=== PATIENT | male | born 1975 | race Caucasian/White ===

== ENCOUNTER 2017-07-15 12:55 | Emergency (ER) | payer OTHER ==
[~2017-07-15] VITALS: Ht 182.9 cm; Wt 146.0 kg
[~2017-07-15 12:55] MED LIST: ONDA4TAB35 PO
[2017-07-15 12:56] VITALS: Ht 182.9 cm; Wt 146.0 kg
[2017-07-15] MEDS ORDERED: IBUPROFEN 800 MG TAB PO ONE (14:30)
--- NOTE | 2017-07-15 15:56 | RADRPT ---
PROCEDURE: XR Left Ankle CLINICAL INDICATION: Medial injury TECHNIQUE: Standard 3 view radiographs were submitted. COMPARISON: None FINDINGS: Osseous structures: There is a comminuted fracture through the medial malleolus with sclerotic [place] suggesting it is not acute. There is a corticated fragmentation at the tip of the lateral mal leolus as well which also does not appear acute. No acute fractures identified. There is calcaneal s purring at the insertion of the Achilles tendon. Joint spaces: The ankle mortise and subtalar joint or anatomically maintained with mild degenerative changes seen about the medial and lateral aspects of the ankle mortise. Soft tissues: There is mild diffuse soft tissue swelling. IMPRESSION: 1. Comminuted old appearing fractures involving the medial malleolus and tip of the lateral malleol us associated mild degenerative change. 2. Mild calcaneal spurring. 3. Mild diffuse soft tissue swelling. Physician Ruperto Date Time Electronically viewed and signed by Physician Ruperto on 07/15/2017 15:56 /
--- NOTE | 2017-07-15 15:59 | RADRPT ---
PROCEDURE: XR Foot 3 Views. CLINICAL INDICATION: Left foot pain. TECHNIQUE: AP, oblique and lateral views of the left foot were obtained. The images were reviewed on a PACS workstation. COMPARISON: None. FINDINGS: Comminuted, nondisplaced fracture through the base of the second metatarsal is identified. Comminute d, minimally displaced fracture through the base of the third metatarsal is seen. Subtle potential c allus formation is identified at these fracture sites. 8 mm corticated calcification is seen along t he medial aspect of the base of the first metatarsal. 12 mm corticated calcification is seen adjacen t to the tip of the medial malleolus. No destructive bony lesions are identified. Mild narrowing a nd degenerative changes seen throughout the tarsal joint compartment. Osteophytosis is seen along th e superior margin of the tarsometatarsal joints and along the superior margin of the navicular [place] form joints on the lateral image. Small Achilles insertion heel spur is seen. Soft tissue swelling is seen over the dorsum of the midfoot. IMPRESSION: Comminuted fractures of the bases of the second and third metatarsals. Subtle potential callus forma tion is identified at these fracture sites suggesting healing. The chronicity of these fractures is indeterminate. Correlation for history of trauma and for pain at this location is recommended. 8 mm corticated calcification adjacent to the medial base of the first metatarsal. Finding could ref lect nonunion of an old fracture versus heterotopic soft tissue calcification. Mild narrowing and degenerative change throughout the tarsal joint compartment. 12 mm corticated calcification adjacent to the tip of the medial malleolus. This could reflect nonun ion of an old fracture versus an accessory ossicle or heterotopic calcification. Achilles insertion heel spur. Soft tissue swelling over the dorsum of the foot. No visualized radiographic evidence of osteomyelitis. If there is clinical suspicion for osteomyelit is, further characterization with MRI or bone scan is recommended. If further characterization is needed CT or MRI could be helpful. If there is high clinical suspicion for additional traumatic injury, further evaluation with CT shou ld be considered. RPTAT: AA .Phoenix Benjamin MD, Date Time Electronically viewed and signed by .Phoenix Benjamin MD, on 07/15/2017 15:59 .P/
[2017-07-15] MEDS ORDERED: IBUP-1542 PO (17:20)
--- NOTE | 2017-07-15 17:34 | ERD ---
ER Documentation Chief Complaint Chief Complaint left ankle pain x 1 hour after fall HPI 42-year-old male patient with a significant past medical history of diabetes, hypertension, hyperlipidemia presents to the ED complaining of a left ankle and foot injury after a mechanical fall. Reports that he was walking and accidentally slipped backwards. Denies any head or neck injuries. Denies any loss of consciousness. Reports that his ankle and foot pain is worsened when he applies pressure while walking. Rates the pain a 10 out of 10. Describes the pain as achy. Denies any fever, chills, nausea, vomiting, diarrhea, saddle anesthesia, urine or bowel incontinence, loss of sensation, loss of range of motion. ROS All systems reviewed and are negative except as per history of present illness. Medications Home Meds Active Scripts Ibuprofen* (Motrin*) 600 Mg Tab, 600 MG PO Q6, #30 TAB Prov:FAY AGUILAR PA-C 07/15/17 Ondansetron Hcl* (Zofran* ODT) 4 mg -ODT Tab.disper, 4 MG PO Q8 Y for NAUSEA AND /OR VOMITING, #5 TAB Prov:FAMLIIA LEONG 07/25/15 Allergies Allergies: Coded Allergies: morphine (Verified Allergy, Unknown, sob, 07/15/17) PMhx/Soc History of Surgery: No Anesthesia Reaction: No Hx Neurological Disorder: Yes (Seizures) Hx Respiratory Disorders: No Hx Cardiac Disorders: No Hx Psychiatric Problems: Yes (dm, ) Hx Alcohol Use: No Hx Substance Use: No Hx Tobacco Use: No Smoking Status: Never smoker Physical Exam Vitals Vital Signs Date Time Temp Pulse Resp B/P Pulse Ox O2 Delivery O2 Flow Rate FiO2 07/15/17 12:56 98.3 91 18 172/92 97 Physical Exam Const: [id number], well-nourished. In no acute distress. Head: Atraumatic, normocephalic Eyes: Normal Conjunctiva without injection ENT: Normal external ear, nose and mouth. Neck: Full range of motion. No meningismus. Resp: Clear to auscultation bilaterally. No wheezing, rhonchi, rales, or crackles. No accessory muscle use. No retractions. Cardio: Regular rate and rhythm, no murmurs Skin: No petechiae or rashes Back: No midline tenderness. No CVA tenderness. Ext: No cyanosis, or edema. Cap refill less than 2 seconds. Distal pulses intact bilaterally. Wrist palpation of the left medial malleolus as well as dorsal aspect of patient's left foot. Slight edema noted. No ecchymosis noted. Neur: Awake and alert. Normal gait and coordination. Muscle strength 5/5. Sensation intact bilaterally. Psych: Normal Mood and Affect Results 24 hrs Current Medications Medications (Trade) Dose Ordered Sig/Kierra Route PRN Reason Start Time Stop Time Status Last Admin Dose Admin Ibuprofen (Motrin) 800 mg ONCE ONCE PO 07/15/17 14:30 07/15/17 14:31 DC 07/15/17 14:19 Procedures/MDM 42-year-old male patient with no significant past medical history presents to the ED complaining of a left ankle and foot injury. Patient is afebrile and nontoxic-appearing. Patient has a blood pressure of 172/92. Patient's blood pressure was elevated (>120/80) but appears stable without evidence of hypertension emergency or urgency. The patient was counseled about the risks of hypertension and urged to pursue outpatient monitoring and therapy within a week with their primary care physician. PROCEDURE: XR Left Ankle CLINICAL INDICATION: Medial injury TECHNIQUE: Standard 3 view radiographs were submitted. COMPARISON: None FINDINGS: Osseous structures: There is a comminuted fracture through the medial malleolus with sclerotic margination suggesting it is not acute. There is a corticated fragmentation at the tip of the lateral malleolus as well which also does not appear acute. No acute fractures identified. There is calcaneal spurring at the insertion of the Achilles tendon. Joint spaces: The ankle mortise and subtalar joint or anatomically maintained with mild degenerative changes seen about the medial and lateral aspects of the ankle mortise. Soft tissues: There is mild diffuse soft tissue swelling. IMPRESSION: 1. Comminuted old appearing fractures involving the medial malleolus and tip of the lateral malleolus associated mild degenerative change. 2. Mild calcaneal spurring. 3. Mild diffuse soft tissue swelling. PROCEDURE: XR Foot 3 Views. CLINICAL INDICATION: Left foot pain. TECHNIQUE: AP, oblique and lateral views of the left foot were obtained. The images were reviewed on a PACS workstation. COMPARISON: None. FINDINGS: Comminuted, nondisplaced fracture through the base of the second metatarsal is identified. Comminuted, minimally displaced fracture through the base of the third metatarsal is seen. Subtle potential callus formation is identified at these fracture sites. 8 mm corticated calcification is seen along the medial aspect of the base of the first metatarsal. 12 mm corticated calcification is seen adjacent to the tip of the medial malleolus. No destructive bony lesions are identified. Mild narrowing and degenerative changes seen throughout the tarsal joint compartment. Osteophytosis is seen along the superior margin of the tarsometatarsal joints and along the superior margin of the navicular cuneiform joints on the lateral image. Small Achilles insertion heel spur is seen. Soft tissue swelling is seen over the dorsum of the midfoot. IMPRESSION: Comminuted fractures of the bases of the second and third metatarsals. Subtle potential callus formation is identified at these fracture sites suggesting healing. The chronicity of these fractures is indeterminate. Correlation for history of trauma and for pain at this location is recommended. 8 mm corticated calcification adjacent to the medial base of the first metatarsal. Finding could reflect nonunion of an old fracture versus heterotopic soft tissue calcification. Mild narrowing and degenerative change throughout the tarsal joint compartment. 12 mm corticated calcification adjacent to the tip of the medial malleolus. This could reflect nonunion of an old fracture versus an accessory ossicle or heterotopic calcification. Achilles insertion heel spur. Soft tissue swelling over the dorsum of the foot. No visualized radiographic evidence of osteomyelitis. If there is clinical suspicion for osteomyelitis, further characterization with MRI or bone scan is recommended. If further characterization is needed CT or MRI could be helpful. If there is high clinical suspicion for additional traumatic injury, further evaluation with CT should be considered. Left foot x-ray and left ankle x-ray was ordered to further evaluate patient. Patient is placed in a posterior ankle splint. Crutches were given to patient to help with ambulation. Splint Assessment: Neurovascularly intact pre and post splint placement with good fit. Patient has various fractures noted likely secondary to old and new fractures. Patient will be placed in a posterior ankle splint and strictly instructed to follow-up with his primary care physician for referral to an orthopedic physician. Fractures could be located at the second and third metatarsal. Old fractures noted at the medial malleolus. Patient's extremity symptoms have stabilized while they have been evaluated in the department and are appropriate for outpatient follow up. No evidence of fractures, dislocations, compartment syndrome, neurologic injury, vascular injury, open joint, open fracture, tendon laceration, septic arthritis, osteomyelitis, DVT, foreign body, or other emergent conditions. Discharge medications: Ibuprofen Follow up with primary care physician in 1-2 days referral to an orthopedic physician. Instructed patient to return to the ED sooner for any worsening symptoms. Patient's questions were answered. Patient understood and agreed with discharge plan. Patient discharged stable. Departure Diagnosis: Primary Impression: Ankle injury Encounter type: initial encounter Laterality: left Qualified Code: S99.912A - Injury of left ankle, initial encounter Additional Impression: Injury, foot Encounter type: initial encounter Laterality: left Qualified Code: S99.922A - Injury of left foot, initial encounter Condition: Stable Patient Instructions: Fracture, Ankle (General), Fracture, Foot Referrals: [facility] YOU HAVE RECEIVED A MEDICAL SCREENING EXAM AND THE RESULTS INDICATE THAT YOU DO NOT HAVE A CONDITION THAT REQUIRES URGENT TREATMENT IN THE EMERGENCY DEPARTMENT. FURTHER EVALUATION AND TREATMENT OF YOUR CONDITION CAN WAIT UNTIL YOU ARE SEEN IN YOUR DOCTORS OFFICE WITHIN THE NEXT 1-2 DAYS. IT IS YOUR RESPONSIBILITY TO MAKE AN APPOINTMENT FOR [facility] CARE. IF YOU HAVE A PRIMARY DOCTOR --you should call your primary doctor and schedule an appointment IF YOU DO NOT HAVE A PRIMARY DOCTOR YOU CAN CALL OUR PHYSICIAN REFERRAL HOTLINE AT IF YOU CAN NOT AFFORD TO SEE A PHYSICIAN YOU CAN CHOSE FROM THE FOLLOWING [facility] [address] [facility]. [facility] [address] [facility] [facility] [address] [facility] [address] [facility] [facility] [address] [facility]. [facility]. [address] [facility]. [facility] YOU HAVE RECEIVED A MEDICAL SCREENING EXAM AND THE RESULTS INDICATE THAT YOU DO NOT HAVE A CONDITION THAT REQUIRES URGENT TREATMENT IN THE EMERGENCY DEPARTMENT. FURTHER EVALUATION AND TREATMENT OF YOUR CONDITION CAN WAIT UNTIL YOU ARE SEEN IN YOUR DOCTORS OFFICE WITHIN THE NEXT 1-2 DAYS. IT IS YOUR RESPONSIBILITY TO MAKE AN APPOINTMENT FOR FOLOW-UP CARE. IF YOU HAVE A PRIMARY DOCTOR --you should call your primary doctor and schedule and appointment IF YOU DO NOT HAVE A PRIMARY DOCTOR YOU CAN CALL OUR PHYSICIAN REFERRAL HOTLINE AT . IF YOU CAN NOT AFFORD TO SEE A PHYSICIAN YOU CAN CHOSE FROM THE FOLLOWING [facility] INSTITUTIONS: [facility] [address] [place] [address] [facility] [address] [place] [address] [facility] [address] [place] [address] [facility] Urgent Care 7 a.m.- 11 p.m. Every Day of the Week NO APPOINTMENT OR AUTHORIZATION NEEDED SO [facility] Hours: Mon-Fri 9:00 AM - 5:00 PM Additional Instructions: Call your primary care doctor TOMORROW for an appointment during the next 2-3 days for a referral to see an orthopedic physician. See the doctor sooner or return here if your condition worsens before your appointment time - decreased range of motion, fever, loss of sensation, etc. FAY AGUILAR PA-C Jul 15, 2017 17:34 FAY AGUILAR PA-C Jul 15, 2017 17:34
== END 2017-07-15 17:32 | disposition home or self-care (01) ==
LOC: FTE 12:55
DX: S99.912A Unspecified injury of left ankle, initial encounter (principal); S99.922A Unspecified injury of left foot, initial encounter; E11.9 Type 2 diabetes mellitus without complications; I10 Essential (primary) hypertension; W01.0XXA Fall on same level from slipping, tripping and stumbling without subsequent striking against object, initial encounter; Y92.9 Unspecified place or not applicable
CPT/HCPCS: 29515; 73610; 73630; Z7610